=== PATIENT | male | born 1990 | race Caucasian/White ===

== ENCOUNTER 2017-05-20 08:54 | Day surgery (SDC) | payer SELFPAY ==
[~2017-05-20] VITALS: Ht 182.9 cm; Wt 108.4 kg
--- NOTE | 2017-05-20 15:21 | Anesthesia Record ---
Anesthesia Record Part II Discharge time: 1545 Destination: Same day surgery PACU nurse assessment review? Yes Patient is: Stable Anesthesia complications? No at 1525
--- NOTE | 2017-05-20 15:21 | Anesthesia Record ---
Anesthesia Record Part I Total IV fluids: 1000 EBL (ml): 0 Urine Output: 0 B/P: 164/68 % SaO2: 94 Pulse: 70 Resps: 16 Temp: 97.7 Patient is: Drowsy, Stable Stable to PACU at: 1515 at 1520
--- NOTE | 2017-05-20 16:57 | RADIOLOGY REPORT PS360 ---
HAND-RT 3 VIEWS HISTORY: ORIF fifth metacarpal fracture 5TH METACARPAL FX ORDERING PHYSICIAN: Ramón Aguila MD PATIENT AGE: 26 years COMPARISON: 05/11/2017 FINDINGS: 3 images obtained with the C-arm show interval placement of a bone plate over the fifth metacarpal fracture with good alignment of the bony fragments and no significant displacement. IMPRESSION: Good alignment status post ORIF fifth metacarpal fracture
--- NOTE | 2017-05-20 17:21 | RADIOLOGY REPORT PS360 ---
HAND-RT 3 VIEWS HISTORY: Follow-up fracture S ORDERING PHYSICIAN: Ramón Aguila MD PATIENT AGE: 26 years COMPARISON: 05/11/2017 FINDINGS: Status post ORIF third metacarpal fracture midshaft. Bone plate has been placed dorsally. There is good alignment and no significant displacement. Study is obtained through a splint. IMPRESSION: Status post ORIF fifth metacarpal fracture with good alignment
[2017-05-20 17:31] VITALS: BP 116/88
--- NOTE | 2017-06-17 11:46 | Operative Note ---
Procedure/Operative Record Date of Procedure: 05/20/17 Pre-op diagnosis: Closed midshaft fracture fifth proximal metacarpal RIGHT hand Post-op diagnosis: Same Procedure performed: Open reduction internal fixation Surgeon: Ramón Aguila Anesthesia: Gen. anesthetic Indications: Closed midshaft fracture fifth proximal metacarpal. This is displaced. Open reduction internal fixation indicated to restore anatomy and improve hand function Description of procedure: The patient was taken to the operating room placed in the supine position and given a general anesthetic. The RIGHT hand was prepped and draped in the usual sterile fashion. Under loupe magnification, a midline incision was made and the extensor tendons carefully reflected and protected. The periosteum was incised in the midline and carefully reflected using strict AO technique. The fracture was identified and a curet used to remove bits and pieces of bone to allow an essentially anatomic reduction. C-arm fluoroscopy was used to confirm the reduction. The fracture gap was noted dorsally where some small comminution fragments had been removed. There was excellent bone contact volarly however. We applied a Alvin 4-hole plate from the mini frag set using offset drilling to allow compression. We then checked for appropriate screw length and position in multiple planes. We checked for stability and found it to be excellent. We then irrigated and closed in layers. The patient was placed in a splint and taken to the recovery room in good condition. EBL (ml): 1 Implant: Alvin titanium mini frag plate, four hole, with four fully threaded cortical compression screws at 0840
== END 2017-05-20 17:26 | disposition home or self-care (01) ==
LOC: SDC 08:54
PROVIDERS: Orthopaedic Surgery
PROC: 0PSP04Z Reposition Right Metacarpal with Internal Fixation Device, Open Approach (ICD-10-PCS; principal; 2017-05-20 11:00)
DX: S62.326A Displaced fracture of shaft of fifth metacarpal bone, right hand, initial encounter for closed fracture (principal); W23.0XXA Caught, crushed, jammed, or pinched between moving objects, initial encounter
CPT/HCPCS: C1713; C1776; J2405

== ENCOUNTER → 2017-06-03 | Outpatient (CLI) | payer SELFPAY ==
--- NOTE | 2017-06-03 12:28 | RADIOLOGY REPORT PS360 ---
HAND-RT 3 VIEWS HISTORY: Follow-up fracture/ORIF FU FX FIFTH METACARPAL ORDERING PHYSICIAN: Ramón Aguila MD PATIENT AGE: 26 years COMPARISON: 05/20/2017 FINDINGS: The splint has been removed. Status post ORIF fifth metacarpal fracture with a bone plate present with good alignment and developing callus formation. Fracture line is still visible. IMPRESSION: Healing fifth metacarpal fracture with good alignment status post ORIF
== END ==
LOC: RAD 09:03
DX: S62.326D Displaced fracture of shaft of fifth metacarpal bone, right hand, subsequent encounter for fracture with routine healing (principal)

== ENCOUNTER → 2017-07-19 | Outpatient (CLI) | payer MEDICAID ==
--- NOTE | 2017-07-19 09:33 | RADIOLOGY REPORT PS360 ---
HAND-RT 3 VIEWS HISTORY: Follow-up fracture FU FX FIFTH METACARPAL ORDERING PHYSICIAN: PADMINI MURRELL MD PATIENT AGE: 26 years COMPARISON: 06/03/2017 FINDINGS: Bone plate remains over the mid shaft fifth metacarpal fracture. Fracture line is somewhat less apparent and there is some mild callus formation consistent with healing. There is good alignment. IMPRESSION: Healing fifth metacarpal fracture status post ORIF
== END ==
LOC: RAD 08:04
DX: S62.326D Displaced fracture of shaft of fifth metacarpal bone, right hand, subsequent encounter for fracture with routine healing (principal)

== ENCOUNTER → 2017-08-12 | Outpatient (CLI) | payer SELFPAY ==
--- NOTE | 2017-08-12 15:53 | RADIOLOGY REPORT PS360 ---
HAND-RT 3 VIEWS HISTORY: FU FX 5TH METACARPAL ORDERING PHYSICIAN: Ramón Aguila MD PATIENT AGE: 26 years COMPARISON: 07/19/2017 FINDINGS: Status post ORIF fifth metacarpal fracture with bone plate in place with good alignment of the fracture fragments. Fracture line is somewhat less apparent than when compared to the previous exam healing. IMPRESSION: Good alignment status post ORIF healing fifth metacarpal fracture
== END ==
LOC: RAD 12:51
DX: S62.326D Displaced fracture of shaft of fifth metacarpal bone, right hand, subsequent encounter for fracture with routine healing (principal)